=== PATIENT | male | born 1960 | race Caucasian/White ===

== ENCOUNTER 2018-05-24 11:45 | Emergency (ER) | payer OTHER ==
[~2018-05-24 11:45] MED LIST: NKHM
[2018-05-24 12:40] LABS: BASO % 0.4 % (0.0-1.0); EOS # 0.2 10*3/uL (0.0-0.4); EOS % 2.3 % (1.0-4.0); HEMATOCRIT 43.6 % (42.0-52.0); HEMOGLOBIN 15.2 g/dl (14.0-18.0); LYMPH # 1.6 10*3/uL (1.3-4.4); LYMPH % 21.6 % (27.0-41.0); MEAN CELL VOLUME 93.4 fl (80.0-94.0); MEAN CORPUSCULAR HGB 32.5 pg (27.0-31.0); MEAN CORPUSCULAR HGB CONC 34.9 g/dl (33.0-37.0); MEAN PLATELET VOLUME 9.4 fl (9.6-12.3); MONO # 0.6 10*3/uL (0.1-1.0); MONO % 7.4 % (3.0-9.0); NEUT # 5.1 10*3/uL (2.3-7.9); NEUT % 68.2 % (47.0-73.0); PLATELET COUNT AUTOMATED 181 10*3/uL (130-400); RED BLOOD COUNT 4.67 10*6/uL (4.50-5.90); RED CELL DISTRI WIDTH 12.2 % (0-14.5); WHITE BLOOD COUNT 7.5 10*3/uL (4.8-10.8)
[2018-05-24 12:54] LABS: ALBUMIN 4.2 gm/dl (3.1-4.5); ALKALINE PHOSPHATASE 69 U/L (45-117); BUN 12 mg/dl (7-24); CHLORIDE 104 mmol/L (98-107); CREATININE 0.94 mg/dL (0.70-1.30); POTASSIUM 3.9 mmol/L (3.5-5.1); SGOT/AST 31 IU/L (3-35); SGPT/ALT 65 U/L (12-78); SODIUM 135 mmol/L (136-145); TOTAL PROTEIN 7.6 gm/dL (6.4-8.2)
[2018-05-24] MEDS ORDERED: PROVENTIL HFA6.7 GM INH (13:21)
[2018-05-24] MEDS ORDERED: DELTASONE20 M1 PO (13:21)
== END 2018-05-24 14:09 | disposition home or self-care (01) ==
LOC: ED 11:45
PROVIDERS: Family Medicine
DX: J40 Bronchitis, not specified as acute or chronic (principal); F17.200 Nicotine dependence, unspecified, uncomplicated

== ENCOUNTER 2023-08-12 07:24 | Emergency (ER) | payer OTHER ==
[~2023-08-12] VITALS: Ht 177.8 cm; Wt 86.2 kg
[~2023-08-12 07:24] MED LIST changes: +DELTASONE20 M1 PO; +PROVENTIL HFA6.7 GM INH
[2023-08-12] MEDS ORDERED: Ketorolac Tromethamine 30 MG/ML VIAL IM ONE (09:25)
== END 2023-08-12 09:37 | disposition home or self-care (01) ==
LOC: ED 07:24
DX: R07.81 Pleurodynia (principal)